=== PATIENT | male | born 1950 | race Caucasian/White ===

== ENCOUNTER 2017-06-01 11:24 | Emergency (ER) | payer MEDICARE ==
[~2017-06-01] VITALS: Ht 188 cm; Wt 88.5 kg
[~2017-06-01 11:24] MED LIST: PRAVASTATIN SOD40 MG PO
[2017-06-01] MEDS ORDERED: VICODIN 5-3001 EACH PO (12:32)
[2017-06-01] MEDS ORDERED: KEFLEX500 MG PO (12:32)
== END 2017-06-01 12:47 | disposition home or self-care (01) ==
LOC: ED 11:24
PROC: 0HQFXZZ Repair Right Hand Skin, External Approach (ICD-10-PCS; principal; 2017-06-01)
DX: S66.120A Laceration of flexor muscle, fascia and tendon of right index finger at wrist and hand level, initial encounter (principal); E78.00 Pure hypercholesterolemia, unspecified; Z90.49 Acquired absence of other specified parts of digestive tract; Z79.899 Other long term (current) drug therapy; W27.0XXA Contact with workbench tool, initial encounter
CPT/HCPCS: 12002; 73140; 90471; 90715; 99283